=== PATIENT | female | born 1990 | race Two or more races ===

== ENCOUNTER 2021-07-19 17:31 | Emergency (ER) | payer SELFPAY ==
[~2021-07-19] VITALS: Ht 162.6 cm; Wt 54.4 kg
[2021-07-19 22:15] VITALS: BP 98/65
== END 2021-07-20 06:59 | disposition home or self-care (01) ==
LOC: ER 17:31
DX: F41.9 Anxiety disorder, unspecified (principal); F12.10 Cannabis abuse, uncomplicated; F15.10 Other stimulant abuse, uncomplicated
CPT/HCPCS: 36415; 80320